=== PATIENT | male | born 1975 | race Hispanic/Latino ===

== ENCOUNTER 2021-09-29 12:11 | Emergency (ER) | payer SELFPAY ==
[~2021-09-29] VITALS: Ht 188 cm; Wt 90.7 kg
[2021-09-29 12:55] LABS: BASOPHILS % (AUTO) 0.6 % (0.0-5.0); EOSINOPHILS % (AUTO) 0.9 % (0.0-8.0); HEMATOCRIT 43.7 % (42-54); LYMPHOCYTES % (AUTO) 32.1 % (21.0-51.0); MEAN CORPUSCULAR HGB CONC 35.2 g/dL (32.0-36.0); MEAN CORPUSCULAR VOLUME 88.1 fL (79-99); NEUTROPHILS % (AUTO) 61.3 % (40.0-77.0); PLATELET COUNT (AUTO) 308 K/uL (130-400); RED BLOOD CELL COUNT(AUTO) 4.96 MIL/uL (4.50-6.20); RED CELL DISTRIBUTION WIDTH 12.4 % (11.0-15.5)
[2021-09-29 13:01] LABS: CREATININE 0.9 mg/dL (0.5-1.5); POTASSIUM 3.8 mmol/L (3.5-5.1)
[2021-09-29 13:03] LABS: INR 1.07 (0.85-1.15); PROTHROMBIN TIME 11.6 SEC (9.6-11.6)
[2021-09-29 13:05] LABS: ALBUMIN 3.8 g/dL (3.5-5.0); BILIRUBIN,TOTAL 0.9 mg/dL (0.2-1.0)
[2021-09-29 13:21] LABS: INFLUENZA TYPE A NEGATIVE FOR TYPE A (NEG); INFLUENZA TYPE B NEGATIVE FOR TYPE B (NEG)
[2021-09-29 13:43] LABS: B-TYPE NATRIURETIC PEPTIDE 13 pg/mL (0-100)
[2021-09-29] MEDS ORDERED: IOHEXOL-350 75 ML VIAL IV ONE (14:31)
[2021-09-29 16:02] VITALS: BP 139/90
== END 2021-09-29 16:25 | disposition home or self-care (01) ==
LOC: EDH 12:11
DX: G45.9 Transient cerebral ischemic attack, unspecified (principal); R47.81 Slurred speech; Z72.0 Tobacco use; Z20.822 Contact with and (suspected) exposure to COVID-19
CPT/HCPCS: 36415; 70450; 70496; 70498; 71045; 80053; 83880; 84484; 85025; 85610; 85730; 86140; 87635; 87804 ×2; 93005; 99285; C9803; Q9967

== ENCOUNTER 2023-01-01 11:46 | Emergency (ER) | payer BC ==
[~2023-01-01] VITALS: Ht 188 cm; Wt 88.5 kg
[2023-01-01] MEDS ORDERED: IOHEXOL 350 MG/ML 100ML INFUS..BTL IV ONE (11:47)
[2023-01-01 12:18] LABS: BASOPHILS % (AUTO) 0.6 % (0.0-5.0); EOSINOPHILS % (AUTO) 1.7 % (0.0-8.0); HEMATOCRIT 45.1 % (42-54); LYMPHOCYTES % (AUTO) 22.7 % (21.0-51.0); MEAN CORPUSCULAR HGB CONC 36.1 g/dL (32.0-36.0); MEAN CORPUSCULAR VOLUME 88.6 fL (79-99); MONOCYTES % (AUTO) 6.4 % (3.0-13.0); PLATELET COUNT (AUTO) 312 K/uL (130-400); RED BLOOD CELL COUNT(AUTO) 5.09 MIL/uL (4.50-6.20); WHITE BLOOD COUNT (AUTO) 9.9 K/uL (4.8-10.8)
[2023-01-01 12:34] LABS: CREATININE 0.9 mg/dL (0.5-1.5); POTASSIUM 3.8 mmol/L (3.5-5.1)
[2023-01-01 12:38] LABS: ALBUMIN 3.9 g/dL (3.5-5.0); TOTAL PROTEIN, SERUM 7.4 g/dL (6.0-8.3)
[2023-01-01] MEDS ORDERED: ASPIRIN 81MG CHEW TAB PO ONE (13:00)
[2023-01-01] MEDS ORDERED: CLOPIDOGREL 75MG TAB PO ONE (13:30)
[2023-01-01 13:41] VITALS: BP 135/94
== END 2023-01-01 15:58 | disposition short-term general hospital (02) ==
LOC: EDH 11:46
DX: I24.9 Acute ischemic heart disease, unspecified (principal); I10 Essential (primary) hypertension; Z88.8 Allergy status to other drugs, medicaments and biological substances
CPT/HCPCS: 99285; 70496; 70551; 71045; 84484; 80053; 85025; 82948; 36415; 70498; 93005; 70450; Q9967